=== PATIENT | female | born 1975 | race Caucasian/White ===

== ENCOUNTER 2017-02-23 16:38 | Emergency (ER) | payer OTHER ==
[2017-02-23 18:12] LABS: BASOPHIL % 0.4 % (0-2); PLATELET COUNT 286 x10^3mcL (130-400); RED CELL DISTRIBUTION WIDTH 13.8 % (11.5-14.5)
[2017-02-23 18:26] LABS: ALBUMIN 3.5 g/dL (3.4-5.0); ALKALINE PHOSPHATASE 45 U/L (46-116); ALT/SGPT 13 U/L (14-59); AST/SGOT 12 U/L (15-37); BILIRUBIN TOTAL 0.29 mg/dL (0.20-1.00); CALCIUM 8.3 mg/dL (8.5-10.1); CARBON DIOXIDE 22.7 mmol/L (21-32); CHLORIDE SERUM 103 mmol/L (98-107); CHOLESTEROL 141 mg/dL (<200); CREATININE SERUM 0.6 mg/dL (0.6-1.0); GFR1 > 60 mL/min; GLUCOSE SERUM 95 mg/dL (74-106); SODIUM SERUM 138 mmol/L (136-145); TOTAL PROTEIN, SERUM 6.8 g/dL (6.4-8.2)
[2017-02-23 18:28] LABS: POTASSIUM SERUM 2.9 mmol/L (3.5-5.1)
[2017-02-23 18:49] LABS: UA SPECIFIC GRAVITY <=1.005 (1.005-1.035); microscopic required? YES; urine erythrocyte NEGATIVE (NEGATIVE)
[2017-02-23 18:58] LABS: AMPHETAMINE QUAL UR NONE DETECTED (NEG <=1000)
[2017-02-24 08:49] VITALS: BP 130/78
== END 2017-02-24 10:08 | disposition home or self-care (01) ==
LOC: ED 16:38
PROVIDERS: Emergency Medicine
DX: T42.4X2A Poisoning by benzodiazepines, intentional self-harm, initial encounter (principal); T51.92XA Toxic effect of unspecified alcohol, intentional self-harm, initial encounter; E87.6 Hypokalemia; Y92.89 Other specified places as the place of occurrence of the external cause
CPT/HCPCS: 80307; 83880; G0480; J3480; J7030